=== PATIENT | male | born 1995 | race Caucasian/White ===

== ENCOUNTER 2017-05-20 22:15 | Emergency (ER) | payer SELFPAY ==
[~2017-05-20] VITALS: Ht 170.2 cm; Wt 65.0 kg
[2017-05-20 22:16] VITALS: BP 150/60; PULSE 85; RESP 16; TEMP 99.1; O2SAT 99
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
== END 2017-05-20 23:46 | disposition home or self-care (01) ==
LOC: NEPD 22:15
DX: S02.2XXA Fracture of nasal bones, initial encounter for closed fracture (principal); W50.0XXA Accidental hit or strike by another person, initial encounter
CPT/HCPCS: 70160; 99283